=== PATIENT | female | born 1990 | race Two or more races ===

== ENCOUNTER 2022-08-08 05:06 | Day surgery (SDC) | payer OTHER ==
[~2022-08-08] VITALS: Ht 154.9 cm; Wt 69.9 kg
== END 2022-08-08 12:00 | disposition home or self-care (01) ==
LOC: CIR.AMB 05:06
PROVIDERS: ATTEND Specialist
DX: K80.10 Calculus of gallbladder with chronic cholecystitis without obstruction (principal); Z20.822 Contact with and (suspected) exposure to COVID-19; K21.9 Gastro-esophageal reflux disease without esophagitis

== ENCOUNTER 2025-09-10 09:15 | Inpatient (IN) | payer OTHER ==
[~2025-09-10] VITALS: Ht 154.9 cm; Wt 82.6 kg
[2025-09-10 11:35] LABS: URINE APPEARANCE Clear; URINE BILIRRUBIN Negative (NEGATIVE); URINE COLOR Yellow; URINE GLUCOSE Negative (NEGATIVE); URINE KETONE 15 (NEGATIVE); URINE LEUKOCYTE Negative; URINE NITRATE Negative; URINE PROTEIN Negative (NEGATIVE); URINE UROBILINOGEN 0.2 E.U./dl
[2025-09-10 11:39] LABS: URINE BACTERIA 224.3 uL (0.0-1933); URINE EPITHELIAL CELLS 32.2 uL (0.0-38.8); URINE RBC 43.5 uL (0.0-20.8); URINE WBC 6.4 uL (0.0-23.2)
[2025-09-10 11:42] LABS: URINE CAST 0.29 uL (0.0-1.40)
[2025-09-10 11:43] LABS: URINE BLOOD TRACE
[2025-09-10 12:21] LABS: ALT/SGPT 21.0 U/L (12-78); AST/SGOT 25.0 U/L (15-37); BILIRUBIN TOTAL 0.45 mg/dL (0.3-1.2); BUN CREA RATIO 15.0 (7.0-25.0); CREATININE SERUM 0.55 mg/dL (0.55-1.02); GFR 127.29; GLOBULINA 3.8 G/DL (2.4-3.5); GLUCOSE FASTING 69.0 mg/dL (65-100); OSMOLALITY SERUM 274.0 MOSM/KG (275-295)
[2025-09-10 12:57] LABS: BASO % 0.4 % (0.1-1.2); EOS # 0.20 (0.04-0.54); EOS % 1.7 % (0.7-7.0); LYMPH # 1.68 (1.18-3.74); LYMPH % 14.2 % (19.3-53.1); MEAN PLATELET VOLUME 9.80 fl (9.4-12.4); MONO # 0.77 (0.24-0.82); MONO % 6.5 % (4.7-12.5); NEUT # 9.06 (1.56-6.13); NEUT % 76.7 % (34.0-71.1); RED CELL DISTRIBUTION WIDTH 13.5 % (11.6-14.4)
[2025-09-10 13:05] LABS: INR 0.94
[2025-09-14 08:18] VITALS: BP 120/73
[2025-09-14] MEDS ORDERED: CHLORHEXIDINE GLUCONATE 120 ML BOTTLE TOP ONE (10:30)
[2025-09-14] MEDS ORDERED: OXYTOCIN 10 UNITS/ML VIAL IV ONE (10:30)
[2025-09-14] MEDS ORDERED: ERYTHROMYCIN BASE OPHT 1GM EACH TUBE OP ONE (10:30)
[2025-09-14] MEDS ORDERED: CEFAZOLIN SODIUM 1,000 MG VIAL IV SCH (10:30)
[2025-09-14] MEDS ORDERED: KETOROLAC TROMETHAMINE 60 MG VIAL IM ONE (12:45)
[2025-09-14] MEDS ORDERED: MORPHINE SULFATE 4 MG/ML CARTRIDGE IV SCH (13:00)
[2025-09-14 14:00] VITALS: BP 114/76
[2025-09-14 16:07] VITALS: BP 107/65
[2025-09-14 16:54] LABS: BASO % 0.3 % (0.1-1.2); EOS # 0.08 (0.04-0.54); EOS % 0.5 % (0.7-7.0); LYMPH # 1.90 (1.18-3.74); LYMPH % 12.0 % (19.3-53.1); MEAN PLATELET VOLUME 9.90 fl (9.4-12.4); MONO # 1.03 (0.24-0.82); MONO % 6.5 % (4.7-12.5); NEUT # 12.76 (1.56-6.13); NEUT % 80.3 % (34.0-71.1); RED CELL DISTRIBUTION WIDTH 13.3 % (11.6-14.4)
[2025-09-15 00:54] VITALS: BP 95/66
[2025-09-15] MEDS ORDERED: OxyCODONE HCL 5 MG TABLET (ROXICODONE) PO SCH (06:00)
[2025-09-15] MEDS ORDERED: ACETAMINOPHEN 325 MG TABLET PO SCH (06:00)
[2025-09-15 08:14] VITALS: BP 91/60
[2025-09-15] MEDS ORDERED: DOCUSATE SODIUM 100MG CAP PO SCH (09:00)
[2025-09-15] MEDS ORDERED: SIMETHICONE 125 MG CAPSULE PO SCH (09:00)
[2025-09-15 15:14] VITALS: BP 129/74
[2025-09-16 00:40] VITALS: BP 119/74
[2025-09-16 05:52] VITALS: BP 125/74
[2025-09-16] MEDS ORDERED: IBU800 MG PO (07:50)
[2025-09-16] MEDS ORDERED: SENOKOT-S TABL1 EACH PO (07:51)
[2025-09-16 08:25] VITALS: BP 121/73
== END 2025-09-16 12:36 | disposition home or self-care (01) | DRG 788 ==
LOC: LDR 09-14 07:00 → O/R 09-14 08:00 → OB/GYN 09-14 08:00 → LDR 09-14 09:15 → OB/GYN 09-14 12:03
PROVIDERS: ADMIT Specialist; ATTEND Specialist
PROC: 0UB00ZZ Excision of Right Ovary, Open Approach (ICD-10-PCS; 2025-09-14)
PROC: 4A1HXCZ Monitoring of Products of Conception, Cardiac Rate, External Approach (ICD-10-PCS; 2025-09-14)
PROC: 10D00Z1 Extraction of Products of Conception, Low, Open Approach (ICD-10-PCS; principal; 2025-09-14 07:00)
DX: O82 Encounter for cesarean delivery without indication (principal); O34.83 Maternal care for other abnormalities of pelvic organs, third trimester; N83.291 Other ovarian cyst, right side; Z3A.39 39 weeks gestation of pregnancy; Z37.0 Single live birth